=== PATIENT | female | born 1975 | race Asian ===

== ENCOUNTER 2019-02-27 05:17 | Day surgery (SDC) | payer OTHER ==
[2019-02-25 16:16] VITALS: BMI 34.5
[2019-02-27] MEDS ORDERED: ROCURONIUM BROMIDE 50 MG/5 ML VIAL ONE ×2 (07:04)
[2019-02-27] MEDS ORDERED: SUCCINYLCHOLINE CHLORIDE 200 MG/10 ML VIAL ONE ×2 (07:05)
[2019-02-27] MEDS ORDERED: PROPOFOL 20 ML ONE ×4 (07:05)
[2019-02-27] MEDS ORDERED: ePHEDrine SULFATE 50 MG/1 ML AMPULE ONE (07:06)
[2019-02-27] MEDS ORDERED: MIDAZOLAM HCL 2 MG/2 ML SINGLE DOSE VIAL ONE (07:08)
[2019-02-27] MEDS ORDERED: ceFAZolin SODIUM 1 GM VIAL ONE ×2 (07:08→10:40)
[2019-02-27] MEDS ORDERED: KETOROLAC TROMETHAMINE 30 MG/1 ML VIAL ONE (07:08)
[2019-02-27] MEDS ORDERED: LIDOCAINE HCL/PF 2% SDV 5ML VIAL ONE (07:08)
[2019-02-27] MEDS ORDERED: DEXAMETHASONE SOD PHOSPHATE 4 MG/1 ML VIAL ONE (07:08)
[2019-02-27] MEDS ORDERED: BUPIVACAINE HCL/PF 0.5% (5MG/ML) 10 ML VIAL ONE (07:30)
--- NOTE | 2019-02-27 08:03 | HP ---
History & Physical Update - History History: No Change - Physical Physical: No Change - Assessment Assessment: No Change - Plan Plan: No Change (no changes since pre-op visit.)
[2019-02-27] MEDS ORDERED: ceFAZolin SODIUM 1 GM VIAL IVPB ONE (08:26)
[2019-02-27] MEDS ORDERED: NEOSTIGMINE METHYLSULFATE 0.5 MG/ML - 10 ML MDV ONE (08:46)
--- NOTE | 2019-02-27 09:17 | OP ---
Operative Note - Note: Operative Date: 02/27/19 Pre-Operative Diagnosis: Voluntary sterilization, Retained IUD Operation: Laproscopic bilateral salpingectomy, Hysteroscopic retrieval of IUD, suction Dilation and curretage Post-Operative Diagnosis: Same as Pre-op Surgeon: Diamond Rosa Date Puller: Hema Bain Anesthesiologist/BUSINESS INTERN: Brian Burroughs Anesthesia: General Estimated Blood Loss (mls): 25 Fluid Volume Replaced (mls): 1,000 Operative Report Dictated: Yes
--- NOTE | 2019-02-27 09:18 | SURG ---
Surgery Websphere Consultant Note Websphere Consultant: Hema Bain PA-C Date of Service: 02/27/19 Diagnosis: Voluntary sterilization, Retained IUD Procedure: Laproscopic bilateral salpingectomy, Hysteroscopic retrieval of IUD, suction Dilation and curretage I was present for the entirety of the operative procedure. For further detail, please refer to operative report. Visit type - Case Type Case Type: Scheduled - Emergency Emergency Visit: No - New patient This patient is new to me today: Yes Date on this admission: 02/27/19
--- NOTE | 2019-02-27 09:45 | OP ---
DATE OF OPERATION: 02/27/2019 PREOPERATIVE DIAGNOSIS: Multiparity, voluntary sterilization, and retained intrauterine device. OPERATION: Laparoscopic salpingectomy and also hysteroscopic intrauterine device removal and suction dilatation and curettage. POSTOPERATIVE DIAGNOSIS: Multiparity, voluntary sterilization, and retained intrauterine device. SURGEON: Diamond Rosa MD SCRAP SAWYER: MARIA ELENA Burnham ANESTHESIA: General. FINDINGS: Uterus with a patch to the anterior abdominal wall. Tubes and ovaries were noted to be normal. There was a retained IUD with the string in the endometrial cavity. PROCEDURE: Patient was taken to the operating room, placed in dorsal lithotomy position, prepped and draped in the usual sterile fashion. A Hong catheter was inserted in the bladder. Attention was then drawn to the umbilicus, where a 5-mm umbilical incision was made. Veress needle was inserted into the cavity. Approximately 3-4 L of CO2 was insufflated into the cavity. Veress needle was then removed, and a 5-mm trocar was inserted. Laparoscope and camera were attached. Visualization revealed normal tubes. Two trocars were placed on the left and the right for 5-mm incisions and trocars inserted under direct visualization. Grasper was then used to grasp the fallopian tube, and cauterization and cutting of the tube was then done bilaterally on the left and right sides. Ovaries were noted to be normal. Tubes were submitted to Pathology. Hemostasis was achieved. All instruments were then removed. CO2 was removed from the abdomen. Incisions were then closed using 3-0 Biosyn suture in a subcuticular fashion. Wound was washed and dressed. Attention was then drawn to the vagina, where a speculum was placed in the vagina. The cervix was then dilated to accommodate the operative hysteroscope. Operative hysteroscope was inserted, and the IUD was then removed followed by suction dilatation and curettage. Content was submitted to Pathology. Estimated blood loss was 25 mL. Patient tolerated the procedure well and was taken to the recovery room in stable condition. DIAMOND ROSA M.D. [id number]
[2019-02-27] MEDS ORDERED: GLYCOPYRROLATE 0.2 MG/1 ML VIAL ONE (11:15)
[2019-02-27] MEDS ORDERED: oxyCODONE HCL 5 MG TABLET PO ONE (13:00)
[2019-02-27] MEDS ORDERED: oxyCODONE HCL 5 MG TABLET ONE (13:01)
[2019-02-27] MEDS ORDERED: ONDANSETRON 4 MG/2 ML VIAL IVPUSH PRN (14:52)
[2019-02-27] MEDS ORDERED: oxyCODONE HCL 5 MG TABLET PO PRN ×2 (14:52)
[2019-02-27] MEDS ORDERED: LACTATED RINGERS SOLUTION 1,000 ML IV SCH (15:00)
[2019-02-27 16:44] VITALS: BP 127/62; PULSE 88; TEMP 98
--- NOTE | 2019-02-28 19:24 | PATH ---
Surgical Pathology Report Patient Name: SAMUEL SOMMER [facility]. Rec. #: [id number] /Age/Gender: 1975 (Age: 43) / F Account: [id number] Location: [facility] SURGICAL Taken: 02/27/2019 Received: 02/27/2019 Reported: 02/28/2019 Physicians: Diamond Rosa M.D. Specimen(s) Received A: RIGHT FALLOPIAN TUBE B: LEFT FALLOPIAN TUBE C: IUD D: ENDOMETRIAL CURETTINGS Clinical History Retained IUD, voluntary sterilization, multiparity Final Diagnosis A. FALLOPIAN TUBE, RIGHT, SALPINGECTOMY: UNREMARKABLE FALLOPIAN TUBE (INCLUDING FIMBRIATED END AND FULL LUMINAL PORTION). B. FALLOPIAN TUBE, LEFT, SALPINGECTOMY: UNREMARKABLE FALLOPIAN TUBE (INCLUDING FIMBRIATED END AND FULL LUMINAL PORTION). C. INTRAUTERINE DEVICE (IUD), REMOVAL: FOREIGN BODY MATERIAL CONSISTENT WITH INTRAUTERINE DEVICE (IUD). MACROSCOPIC DIAGNOSIS. D. ENDOMETRIAL CURETTINGS, DILATION AND CURETTAGE: FRAGMENTS OF INACTIVE ENDOMETRIUM, FIBROMUSCULAR TISSUE SUGGESTIVE OF SUBMUCOSAL LEIOMYOMA, AND ENDOCERVICAL TISSUE WITH FOCAL SQUAMOUS METAPLASIA. Electronically Signed Nena Bernard M.D. Gross Description A. Received in formalin labeled "right fallopian tube," is a 4.5 cm in length fimbriated fallopian tube. The outer surface is solis-pink and smooth. Sectioning reveals an unremarkable lumen. Concrete Mixer Operator Helper sections are submitted in 2 cassettes as follows: 1-fimbria; 2-cross sections of fallopian tube. B. Received in formalin labeled "left fallopian tube," is a 4.8 cm in length fimbriated fallopian tube. The outer surface is solis freeman and smooth. Sectioning reveals an unremarkable lumen. Concrete Mixer Operator Helper sections are submitted in 2 cassettes as follows: 1-fimbria; 2-cross sections of fallopian tube. C. Received fresh labeled "IUD," is a 3.2 cm in length T. Shaped device with attached string, consistent with an IUD. No soft tissue is present. No sections are submitted, gross only. D. Received in formalin labeled "endometrial curettings," is a 1.8 x 1.4 x 0.3 cm aggregate of solis-brown soft tissue fragments. The formalin is filtered and the specimen is entirely submitted in one cassette. DL/02/27/2019 saudi02/27/2019
== END 2019-02-27 13:45 | disposition home or self-care (01) ==
LOC: JASU-SURG 05:17
PROVIDERS: ATTEND Obstetrics & Gynecology
PROC: 0UJD8ZZ Inspection of Uterus and Cervix, Via Natural or Artificial Opening Endoscopic (ICD-10-PCS; 2019-02-27)
PROC: 0U574ZZ Destruction of Bilateral Fallopian Tubes, Percutaneous Endoscopic Approach (ICD-10-PCS; principal; 2019-02-27 08:00)
PROC: 0UC98ZZ Extirpation of Matter from Uterus, Via Natural or Artificial Opening Endoscopic (ICD-10-PCS; 2019-02-27 08:00)
PROC: 0UDB7ZX Extraction of Endometrium, Via Natural or Artificial Opening, Diagnostic (ICD-10-PCS; 2019-02-27 08:00)
DX: Z30.2 Encounter for sterilization (principal); Z30.432 Encounter for removal of intrauterine contraceptive device
CPT/HCPCS: 36415; 84702; 86850; 86900; 86901; 88300-TC; 88302-TC; 88305-TC; 94760

== ENCOUNTER 2021-01-19 05:58 | Day surgery (SDC) | payer OTHER ==
[2021-01-07 10:52] VITALS: BMI 35.4
[2021-01-19] MEDS ORDERED: LIDOCAINE HCL 1%, 10 MG/ML (20ML VIAL) ONE (07:26)
[2021-01-19] MEDS ORDERED: MIDAZOLAM HCL 2 MG/2 ML SINGLE DOSE VIAL ONE (07:46)
[2021-01-19] MEDS ORDERED: SUCCINYLCHOLINE CHLORIDE 200 MG/10 ML SYRINGE ONE (07:46)
[2021-01-19] MEDS ORDERED: PROPOFOL 20 ML ONE ×2 (07:46)
[2021-01-19] MEDS ORDERED: ONDANSETRON 4 MG/2 ML VIAL ONE (08:03)
[2021-01-19] MEDS ORDERED: ceFAZolin SODIUM 1 GM VIAL ONE (08:03)
[2021-01-19] MEDS ORDERED: DEXAMETHASONE SOD PHOSPHATE 4 MG/1 ML VIAL ONE ×2 (08:03→08:05)
[2021-01-19] MEDS ORDERED: KETOROLAC TROMETHAMINE 30 MG/1 ML VIAL ONE (08:03)
[2021-01-19] MEDS ORDERED: BUPIVACAINE HCL/PF 2.5 MG/ML - 30 ML VIAL IJ ONE (08:05)
[2021-01-19 09:23] VITALS: TEMP 98.2
[2021-01-19] MEDS ORDERED: diphenhydrAMINE HCL 25 MG CAPSULE (FP) PO ONE (09:49)
[2021-01-19 10:39] VITALS: BP 128/80; PULSE 88
== END 2021-01-19 10:25 | disposition home or self-care (01) ==
LOC: FASU 05:58
PROVIDERS: ATTEND Surgery
PROC: 0JB80ZZ Excision of Abdomen Subcutaneous Tissue and Fascia, Open Approach (ICD-10-PCS; principal; 2021-01-19 08:28)
DX: D21.4 Benign neoplasm of connective and other soft tissue of abdomen (principal)
CPT/HCPCS: 81025; 88304-TC

== ENCOUNTER 2025-06-19 06:10 | Day surgery (SDC) | payer OTHER ==
[2025-06-12 13:31] VITALS: BMI 29.2
[2025-06-19] MEDS ORDERED: LIDOCAINE 1%/EPI 1:100000 (20 ML MULTI DOSE VIAL) ONE (07:18)
[2025-06-19] MEDS ORDERED: ACETAMINOPHEN INJECTION 100 ML ONE (08:00)
[2025-06-19] MEDS ORDERED: DEXAMETHASONE SOD PHOSPHATE 4 MG/1 ML VIAL ONE (08:06)
[2025-06-19] MEDS ORDERED: LIDOCAINE HCL/PF 2% SDV 5ML VIAL ONE (08:06)
[2025-06-19] MEDS ORDERED: ONDANSETRON 4 MG/2 ML VIAL ONE (08:06)
[2025-06-19] MEDS ORDERED: PROPOFOL 40 ML ONE (08:07)
[2025-06-19] MEDS ORDERED: MIDAZOLAM HCL 2 MG/2 ML SINGLE DOSE VIAL ONE ×2 (08:07→09:05)
[2025-06-19] MEDS ORDERED: ROCURONIUM BROMIDE 50 MG/5 ML SYRINGE ONE (08:07)
[2025-06-19] MEDS ORDERED: ONDANSETRON 4 MG/2 ML VIAL IVPUSH PRN (08:20)
[2025-06-19] MEDS ORDERED: LACTATED RINGERS SOLUTION 1,000 ML IV SCH (08:30)
[2025-06-19] MEDS: LIDOCAINE 1%/EPI 1:100000 (20 ML MULTI DOSE VIAL) IJ ONE ×4 (09:01)
[2025-06-19] MEDS: BUPIVACAINE HCL/PF 0.25% (2.5MG/ML) 10 ML VIAL IJ ONE ×3 (09:01)
[2025-06-19 11:15] VITALS: RESP 20
[2025-06-19 12:25] VITALS: BP 111/69; PULSE 76; TEMP 97.5
== END 2025-06-19 12:57 | disposition home or self-care (01) ==
LOC: JASU-SURG 06:10
PROVIDERS: ATTEND Surgery
PROC: 0JB70ZZ Excision of Back Subcutaneous Tissue and Fascia, Open Approach (ICD-10-PCS; principal; 2025-06-19 10:00)
DX: D17.1 Benign lipomatous neoplasm of skin and subcutaneous tissue of trunk (principal)
CPT/HCPCS: 81025; 88304-TC; 94760